=== PATIENT | female | born 1990 | race American Indian/Alaskan Native ===

== ENCOUNTER 2022-03-09 18:00 | Outpatient (CLI) | payer MEDICAID ==
[2022-03-09 19:09] VITALS: BP 126/93
== END 2022-03-09 21:47 | disposition home or self-care (01) ==
LOC: TRG 18:00 → APU 18:03 → TRG 21:47
PROVIDERS: ATTEND Obstetrics & Gynecology
DX: O26.853 Spotting complicating pregnancy, third trimester (principal); O62.4 Hypertonic, incoordinate, and prolonged uterine contractions; Z3A.40 40 weeks gestation of pregnancy
CPT/HCPCS: 59025

== ENCOUNTER 2022-03-10 03:41 | Inpatient (IN) | payer MEDICAID ==
[2022-03-10] MEDS ORDERED: LACTATED RINGERS 1,000 ML ONE (04:37)
[2022-03-10] MEDS ORDERED: OXYTOCIN DRIP 30,000 MILLIUNITS/500 ML BAG IV ONE (05:03)
--- NOTE | 2022-03-10 06:06 | History and Physical Report ---
History of Present Illness Date of examination: 03/10/22 Date of admission: 03/10/22 04:17 Chief complaint: Contractions History of present illness: 32-year-old at 40+3 weeks who presents in active labor with advanced cervical dilatation. The patient is a late transfer care at 35 weeks estimated gestational age. The patient is GBS negative Past History Past Medical History: no pertinent history Past Surgical History: no surgical history Social history: single - Obstetrical History Expected Date of Delivery: 03/07/22 Actual Gestation: 40 Week(s) 3 Day(s) : 1 Para: 0 Hx # Term Pregnancies: 0 Number of Pregnancies: 0 Spontaneous Abortions: 0 Induced : 0 Number of Living Children: 0 Medications and Allergies Allergies Allergy/AdvReac Type Severity Reaction Status Date / Time No Known Allergies Allergy Verified 03/10/22 04:51 Review of Systems All systems: negative Genitourinary: pelvic pain, contractions - Vital Signs Vital signs: Vital Signs Pulse Pulse Ox 90 98 03/10/22 04:00 03/10/22 04:00 Temp Pulse Resp BP Pulse Ox 109 H 16 96 03/10/22 05:59 03/10/22 04:47 03/10/22 05:59 - Physical Exam Breasts: Positive: deferred Cardiovascular: Regular rate Lungs: Positive: Clear to auscultation Abdomen: Positive: normal appearance - Obstetrical Cervical Dilatation: 8 Results All other labs normal. Assessment and Plan - Patient Problems (1) Active labor at term Current Visit: Yes Status: Acute Plan to address problem: Admit to labor and delivery
[2022-03-10] MEDS ORDERED: WITCH HAZEL/ GLYCERIN PAD TP PRN ×2 (06:09→13:16)
[2022-03-10] MEDS ORDERED: LANOLIN/ZINC/DIMETHICONE (LANSINOH) 7 GM TP PRN ×2 (06:09→13:16)
[2022-03-10] MEDS ORDERED: PROMETHAZINE 25 MG RECT SUPP PR PRN ×2 (06:09→13:16)
[2022-03-10] MEDS ORDERED: diphenhydrAMINE 25 MG CAP PO PRN ×2 (06:09→13:16)
[2022-03-10] MEDS ORDERED: HYDROcodone/ACETAMINOPHEN 5-325 MG TAB PO PRN ×2 (06:09→13:16)
[2022-03-10] MEDS ORDERED: MAGNESIUM HYDROXIDE (MOM) ORAL LIQD UDC PO PRN ×2 (06:09→13:16)
[2022-03-10] MEDS ORDERED: ONDANSETRON 4 MG/2 ML INJ IV PRN ×2 (06:09→13:16)
[2022-03-10] MEDS ORDERED: ACETAMINOPHEN 325 MG TAB PO PRN ×2 (06:09→13:16)
[2022-03-10] MEDS ORDERED: PROMETHAZINE 25 MG TAB PO PRN ×2 (06:09→13:16)
--- NOTE | 2022-03-10 06:09 | Procedure Note ---
OB Delivery Note - Delivery Date of Delivery: 03/10/22 Surgeon: OMAR ARMSTRONG Estimated blood loss: 200cc - Vaginal Delivery presentation: vertex Delivery position: OA Delivery monitor: external FHT, external uterine Route of delivery: Delivery placenta: manual Delivery cord: nuchal cord Episiotomy: none Delivery laceration: none Anesthesia: none Delivery comments: The patient progressed to complete complete +1 and pushed to deliver a liveborn male infant with Apgars of 9 and 9 weight 7 pounds 8 ounces. After delivery of the head a nuchal cord was manually reduced. The shoulders delivered without difficulty. The was bulb suctioned and stimulated. Cord clamping was delayed. The cord was clamped and cut and infant was placed on the patient's abdomen. During the third stage of labor there was an avulsion of the cord. Manual extraction of the placenta had to be performed which was intact. No lacerations were noted. Estimated blood loss 200 mL - A at 1 minute: 9 at 5 minutes: 9 Gender: Male (Weight 7 pounds 8 ounces)
[2022-03-10] MEDS ORDERED: IBUPROFEN 800 MG TAB PO SCH (07:00)
[2022-03-10 12:06] LABS: Hematocrit 45.3 % (30.3-42.9); Hemoglobin 15.3 gm/dl (10.1-14.3)
[2022-03-10] MEDS ORDERED: BENZOCAINE/MENTHOL 20/0.5% TOP SPRAY 56 GM TP PRN (13:16)
[2022-03-10] MEDS: IBUPROFEN 600 MG TAB PO SCH ×4 (15:53→20:50)
[2022-03-10] MEDS: DOCUSATE SODIUM 100 MG CAP PO SCH (21:30)
[2022-03-10] MEDS: FERROUS SULFATE 325 MG TAB PO SCH (21:30)
[2022-03-11] MEDS: IBUPROFEN 600 MG TAB PO SCH ×2 (02:00→08:23)
[2022-03-11 06:28] LABS: Hematocrit 35.1 % (30.3-42.9); Hemoglobin 11.7 gm/dl (10.1-14.3); Mean Corpuscular HGB Conc 33 % (30-34); Mean Corpuscular Volume 105 fl (79-97); Platelet Count 118 K/mm3 (140-440); Red Blood Count 3.36 M/mm3 (3.65-5.03)
--- NOTE | 2022-03-11 07:53 | Progress Note ---
Assessment and Plan - Patient Problems (1) Active labor at term Current Visit: Yes Status: Acute Plan to address problem: Patient doing well Discharge home Subjective - Subjective Date of service: 03/11/22 Interval history: Patient reports some minor cramping. She states that her lochia is moderate. She is tolerating a regular diet without complication. Patient reports: appetite normal, voiding normally, pain well controlled [place]: doing well Objective - Vital Signs Latest vital signs: Vital Signs Temp Pulse Resp BP BP Pulse Ox Pulse Ox 03/11/22 01:08 98.0 F 91 H 18 107/73 100 03/10/22 16:30 98.6 F 75 16 108/56 100 03/10/22 12:29 98.4 F 83 20 108/68 98 03/10/22 09:05 98 03/10/22 09:04 98.8 F 86 18 126/80 100 03/10/22 08:39 53 L 86 03/10/22 08:36 102 H 99 03/10/22 08:31 101 H 98 03/10/22 08:26 105 H 97 03/10/22 08:21 107 H 87 03/10/22 08:16 101 H 99 03/10/22 08:11 111 H 98 03/10/22 08:06 113 H 97 03/10/22 08:01 116 H 98 03/10/22 07:56 100 H 98 Intake and Output 03/10/22 03/11/22 03/11/22 22:59 06:59 14:59 Intake Total 240 120 Balance 240 120 Intake: Oral 240 Intake, Free Water 120 Other: Total, Intake Amount 240 # Voids Void 1 1 - Exam Abdomen: Present: normal appearance, soft Uterus: Present: normal, firm - Labs Labs: Abnormal lab results 03/10/22 03/11/22 Range/Units 11:40 05:18 RBC 3.36 L (3.65-5.03) M/mm3 Hgb 15.3 H (10.1-14.3) gm/dl Hct 45.3 H (30.3-42.9) % MCV 105 H (79-97) fl MCH 35 H (28-32) pg RDW 13.0 L (13.2-15.2) % Plt Count 118 L (140-440) K/mm3
--- NOTE | 2022-03-11 07:54 | Discharge Summary ---
Providers - Providers Date of Admission: 03/10/22 04:17 Date of discharge: 03/11/22 Attending physician: OMAR ARMSTRONG 03/10/22 13:17 Consult to [employer] [CONS] Routine Reason For Exam: assistance with , SNS Primary care physician: OMAR ARMSTRONG Hospitalization Reason for admission: active labor Delivery: Discharge diagnosis: IUP at term delivered Hospital course: The patient was admitted in active labor and had a successful vaginal delivery. course was uneventful. Condition at discharge: Good Disposition: 01 HOME / SELF CARE / HOMELESS - Discharge Diagnoses (1) Active labor at term Status: Acute Plan - Discharge Medications Prescriptions: Ibuprofen [Motrin] 800 mg PO Q8HR PRN #30 tablet PRN Reason: Pain , Severe (7-10) HYDROcodone/APAP 5-325 [[place] 5/325] 1 each PO Q6HR PRN #15 tablet PRN Reason: Pain - Provider Discharge Summary Activity: no sex for 6 weeks, no heavy lifting 4 weeks, no strenuous exercise Diet: routine Instructions: routine Additional instructions: [] Smoking cessation referral if applicable(refer to patient education folder for contact #) [] Refer to [facility] Booklet Call your doctor immediately for: * Fever > 100.5 * Heavy vaginal bleeding ( >1 pad per hour) * Severe persistent headache * Shortness of breath * Reddened, hot, painful area to leg or breast * Schedule visit in 4 weeks - Follow up plan
[2022-03-11] MEDS: DOCUSATE SODIUM 100 MG CAP PO SCH (10:49)
[2022-03-11] MEDS: FERROUS SULFATE 325 MG TAB PO SCH (10:49)
[2022-03-11] MEDS ORDERED: MEASLES, MUMPS & RUBELLA 12,500 UNIT/0.5 ML VACCINE SUB-Q ONE (13:16)
[2022-03-11] MEDS ORDERED: TETANUS,DIPH,PERTUSS(ACELL) VACCINE 0.5 ML SYRINGE IM ONE (13:17)
[2022-03-11 18:35] VITALS: BP 126/75
== END 2022-03-11 19:38 | disposition home or self-care (01) | DRG 775 ==
LOC: TRG 03:41 → APU 03:43 → TRG 04:15 → LD 04:17 → OB 08:53
PROVIDERS: ADMIT Obstetrics & Gynecology; ATTEND Obstetrics & Gynecology
PROC: 10E0XZZ Delivery of Products of Conception, External Approach (ICD-10-PCS; principal; 2022-03-10)
PROC: 3E0234Z Introduction of Serum, Toxoid and Vaccine into Muscle, Percutaneous Approach (ICD-10-PCS; 2022-03-11)
DX: O69.81X0 Labor and delivery complicated by cord around neck, without compression, not applicable or unspecified (principal); Z37.0 Single live birth; Z3A.40 40 weeks gestation of pregnancy; Z23 Encounter for immunization
CPT/HCPCS: 36415; 85014; 85018; 85027; 86850; 86900; 86901; G0378